=== PATIENT | male | born 1985 | race Caucasian/White ===

== ENCOUNTER 2021-01-04 23:17 | Emergency (ER) | payer MEDICAID ==
[~2021-01-04] VITALS: Ht 170.2 cm; Wt 100.0 kg
[2021-01-05 00:08] LABS: BASOPHILS % 0.7 % (0.0-2.0); HEMATOCRIT. 46.7 % (42.0-52.0); HEMOGLOBIN. 15.7 g/dL (14.0-18.0); MEAN CORPUSCULAR HEMOGLOBIN 30.9 pg (28.0-32.0); MEAN CORPUSCULAR VOLUME 91.6 fL (80.0-94.0); MONOCYTES % 6.3 % (2.0-8.0); PLATELET 244 x1000/uL (130-400); RED CELL DISTRIBUTION WIDTH 13.9 % (11.6-14.6)
[2021-01-05 00:17] LABS: CHLORIDE 103 mEq/L (98-107)
[2021-01-05 01:14] LABS: BASOPHILS % 0.7 % (0.0-2.0); EOSINOPHILS % 1.2 % (0.0-5.0); HEMATOCRIT. 45.7 % (42.0-52.0); HEMOGLOBIN. 15.6 g/dL (14.0-18.0); LYMPHOCYTES % 18.1 % (20.0-50.0); MEAN CORPUSCULAR VOLUME 90.9 fL (80.0-94.0); MEAN PLATELET VOLUME 9.1 fl (7.4-10.4); PLATELET 248 x1000/uL (130-400); RED BLOOD CELL COUNT 5.02 mill/uL (4.7-6.1)
[2021-01-05] MEDS ORDERED: KETOROLAC 30MG/ML VIAL IV NR (02:15)
[2021-01-05 02:58] VITALS: BP 154/85
[2021-01-05] MEDS ORDERED: IOHEXOL-300 100 ML BOTTLE ONE (05:57)
== END 2021-01-05 03:22 | disposition home or self-care (01) ==
LOC: ER 23:28
DX: M25.572 Pain in left ankle and joints of left foot (principal); V49.9XXA Car occupant (driver) (passenger) injured in unspecified traffic accident, initial encounter; Y93.89 Activity, other specified; Y92.89 Other specified places as the place of occurrence of the external cause; Y99.8 Other external cause status
CPT/HCPCS: 36415; 73562; 73590; 73610; 74177; 80053; 83690; 85025; 96374; 99285; J1885; Q9967